=== PATIENT | male | born 1975 | race Caucasian/White ===

== ENCOUNTER → 2017-03-02 | Outpatient (CLI) | payer BC ==
[~2017-03-02] MED LIST: IOHEXOL 240 MG/ML 50ML VIAL. ONE; IOHEXOL 300 MG/ML 75 ML VIAL. IV ONE
--- NOTE | 2017-03-02 10:30 | RAD ---
CT abdomen and pelvis with contrast, 03/02/2017 Clinical indication: Abdominal pain, bulge at the level of the umbilicus. Comparison: None. Technique: Helical CT acquisition of the abdomen and pelvis was obtained following uneventful intravenous administration of 75 mL Omnipaque 300. Coronal and sagittal reformations were obtained. PQRS Compliance Statement: One or more of the following individualized dose reduction techniques were utilized for this examination: 1. Automated exposure control 2. Adjustment of the mA and/or kV according to patient size 3. Use of iterative reconstruction technique. Findings: Abdomen and pelvis: Heart size and visualized lung bases are within normal limits. There is a enhancing lesion in peripheral hepatic segment 8 measuring 1.2 cm (series 2/image 8) which likely represents benign hemangioma. There is a 7 mm hypodensity at the junctions of hepatic segment 4A/2 (series 2/image 17) which is too small to definitively characterize, though statistically likely a cyst. Gallbladder is normal in size and configuration. No intra or extrahepatic biliary ductal dilatation. Spleen, adrenal glands, pancreas and kidneys are within normal limits apart from a 1.2 cm cyst superior pole of the right kidney and a too small to characterize 2 mm hypodensity in the superior pole of the left kidney. No collecting system dilatation. Abdominal aorta is normal in caliber. Major portal, splenic and visualized upper speed or mesenteric veins are widely patent. Small and large bowel loops are normal in caliber without obstruction. Appendix is normal in appearance. No abdominal free fluid. No retroperitoneal or mesenteric lymphadenopathy. Mildly distended and unopacified urinary bladder, prostate and seminal vesicles are within normal limits. No iliac or inguinal lymphadenopathy. No pelvic free fluid. There are multiple clustered small patchy sclerotic lesions in the posterior right iliac weighing and bilateral iliac lucencies with benign features. There are two small paraumbilical fat-containing hernias with no internal stranding. Impression: 1. Two small fat-containing paraumbilical hernias which may account for patient's abdominal bulging. 2. Additional findings in the body of the report.
== END | disposition home or self-care (01) ==
LOC: CT 07:50
PROVIDERS: ATTEND Physician Assistant
DX: Z00.01 Encounter for general adult medical examination with abnormal findings (principal); R10.33 Periumbilical pain; R35.1 Nocturia
CPT/HCPCS: 74177; Q9966; Q9967